=== PATIENT | female | born 1975 | race Caucasian/White ===

== ENCOUNTER 2017-01-21 11:02 | Emergency (ER) | payer SELFPAY ==
[2017-01-21 12:50] LABS: Basophils % (Auto) 1.2 % (0.0-1.8); Eosinophils % (Auto) 0.8 % (0.0-4.3); Hematocrit 37.4 % (30.3-42.9); Hemoglobin 11.6 gm/dl (10.1-14.3); Mean Corpuscular HGB Conc 31 % (30-34); Mean Corpuscular Volume 83 fl (79-97); Platelet Count 367 K/mm3 (140-440); Red Blood Count 4.54 M/mm3 (3.65-5.03); Red Cell Distribution Width 14.9 % (13.2-15.2); White Blood Count 8.1 K/mm3 (4.5-11.0)
[2017-01-21 12:51] LABS: Mean Corpuscular Hemoglobin 26 pg (28-32)
[2017-01-21 12:57] LABS: Anion Gap 17 mmol/L; BUN/Creatinine Ratio 16.66; Blood Urea Nitrogen 10 mg/dL (7-17); Calcium 9.1 mg/dL (8.4-10.2); Carbon Dioxide 26 mmol/L (22-30); Chloride 100.3 mmol/L (98-107); Glucose 84 mg/dL (65-100); Potassium 3.8 mmol/L (3.6-5.0); Sodium 139 mmol/L (137-145)
[2017-01-21 13:49] LABS: Bacteria,Urine 1+ /HPF (Negative); Bilirubin,Urine NEG (Negative); Blood,Urine NEG (Negative); Ketones,Urine NEG (Negative); Leukocyte Esterase,Urine TR (Negative); Mucus,Urine 3+ /HPF; Nitrite,Urine NEG (Negative); Urobilinogen,Urine < 2.0 mg/dL (<2.0)
--- NOTE | 2017-01-21 15:27 | Emergency Department Report ---
HPI - General Chief Complaint: Psych Time Seen by Provider: 01/21/17 12:46 - HPI HPI: This is a 41 year-old female presents to the emergency department via PD, although voluntarily, with the complaint of insomnia and what appears to be some psychosis and delusions. The patient says that she just was discharged from [place] yesterday after being near for the sensation and/or delusion that something is always crawling on her. This mostly happens at night when she is trying to sleep and therefore has been unable to sleep. This continued at the intermediate she is currently at. She also says that she feels like there is something moving around in her leg and it feels like there are snakes in there. She says that sometimes when she is sleeping she feels that Shay Hopkins is pushing her in the bed. She says that she has voices in her head and may have granted her super castle and which she is a telepathic and able to create spaceships and planets with her mind. She denies any significant suicidal ideations but does say that when she is having insomnia, and when she is having is delusions, that it "decreases my self-esteem" and sometimes she will think about ways to harm herself. ED Past Medical Hx - Past Medical History Previous Medical History?: Yes Hx Psychiatric Treatment: Yes (schizophrenia) - Surgical History Past Surgical History?: No - Social History Smoking Status: Never Smoker Substance Use Type: None ED Review of Systems ROS: Stated complaint: MENTAL HEALTH,HEARING VOICES Other details as noted in HPI Comment: All other systems reviewed and negative Constitutional: denies: chills, fever Eyes: denies: eye pain, eye discharge, vision change ENT: denies: ear pain, throat pain Respiratory: denies: cough, shortness of breath, wheezing Cardiovascular: denies: chest pain, palpitations Gastrointestinal: denies: abdominal pain, nausea, diarrhea Genitourinary: denies: urgency, dysuria, discharge Musculoskeletal: denies: back pain, joint swelling, arthralgia Skin: denies: rash, lesions Neurological: denies: headache, weakness, paresthesias Psychiatric: auditory hallucinations. denies: visual hallucinations, homicidal thoughts Physical Exam - Physical Exam Vital Signs: Vital Signs 01/21/17 01/21/17 12:03 13:14 Temperature 98.1 F Pulse Rate 85 Respiratory 16 18 Rate Blood Pressure 120/82 O2 Sat by Pulse 100 Oximetry Physical Exam: GENERAL: The patient is well-developed well-nourished. HENT: Normocephalic. Atraumatic. Patient has moist mucous membranes. EYES: Extraocular motions are intact. Pupils equal reactive to light bilaterally. NECK: Supple. Trachea is midline. CHEST/LUNGS: Clear to auscultation. There is no respiratory distress noted. HEART/CARDIOVASCULAR: Regular. There is no tachycardia. There is no gallop rub or murmur. ABDOMEN: Abdomen is soft, nontender. Patient has normal bowel sounds. There is no abdominal distention. SKIN: Skin is warm and dry. NEURO: The patient is awake, alert, and oriented. The patient is cooperative. The patient has no focal neurologic deficits. The patient has normal speech. MUSCULOSKELETAL: There is no tenderness or deformity. There is no limitation range of motion. There is no evidence of acute injury. ED Course Vital Signs 01/21/17 01/21/17 12:03 13:14 Temperature 98.1 F Pulse Rate 85 Respiratory 16 18 Rate Blood Pressure 120/82 O2 Sat by Pulse 100 Oximetry ED Medical Decision Making - Lab Data Result diagrams: 01/21/17 12:24 01/21/17 12:24 - Medical Decision Making 41-year-old female presents to the emergency department with auditory hallucinations, delusions and psychosis. There may be some level of suicidal ideations although the patient does not really have any plan. From these reasons the patient has been made a 1013. Vital signs stable that her ED course. Labs are unremarkable and do not show any etiology of her symptoms. She is medically cleared for psychiatric placement. - Differential Diagnosis schizophrenia, schizoaffective, bipolar disorder, depression Critical Care Time: No Critical care attestation.: If time is entered above; I have spent that time in minutes in the direct care of this critically ill patient, excluding procedure time. ED Disposition Clinical Impression: Delusions Psychosis Qualifiers: Psychosis type: unspecified psychosis type Qualified Code(s): F29 - Unspecified psychosis not due to a substance or known physiological condition Disposition: [id number]/TX-65 PSY HOSP/PSY UNIT Is pt being admited?: No Condition: Stable Referrals: PRIMARY CARE, [Primary Care Provider] - 3-5 Days Time of Disposition: 15:27
[2017-01-22 14:36] VITALS: BP 119/80
--- NOTE | 2017-01-22 15:58 | Consultation ---
History of Present Illness - Reason for Consult Consult date: 01/22/17 Reason for consult: Mental Health Evaluation Requesting physician: KAIA LUCERO - Chief Complaint Chief complaint: "It was katlyn ventura" - History of Present Psychiatric Illness This is a 41 year-old female presents to the emergency department via PD for psychosis and delusions. Today patient is calm and cooperative during the assessment. She stated that she was a patient at [facility] 2 days ago. She was discharged to a residential and while there she started experiencing perceptional disturbances. She stated that "katlyn ventura" was taking over her "soul." She stated not being able to sleep at night because of a sound that she could not described. She felt like the residential wasn't safe for her. She stated that she called 911 for help and be placed somewhere safe. She stated that she got "rest" last night and would like to leave the hospital. During the conversation, the patient seemed preoccupied by looking around and pausing during the assessment. She stated that the "katlyn ventura" isn' t here at the hospital, but it could come "soon." She stated receiving the Abilify injection 2 days ago. She denies SI/HI's and depression. She could not confirm or deny perceptional disturbances. She denies recreational drug use and alcohol consumption (etoh). Medications and Allergies Allergies Allergy/AdvReac Type Severity Reaction Status Date / Time paliperidone [From Invega] Allergy Unknown Verified 01/21/17 12:13 risperidone [From Risperdal] Allergy Unknown Verified 01/21/17 12:13 Past psychiatric history - Past Medical History Past Medical History: No medical history Past Surgical History: No surgical history - past Psychiatric treatment and history Psych: Schizophrenia psychiatric treatment history: Inpatient at [facility] 48 hours ago. She denies a fam psy hx. - Social History Social history: lives with family ([employer] graduate) Mental Status Exam - Vital signs Last Vital Signs Temp 976 F H 01/22/17 13:00 Pulse 76 01/22/17 13:00 Resp 20 01/22/17 14:36 BP 119/80 01/22/17 13:00 Pulse Ox 97 01/22/17 14:36 - Exam Narrative exam: ROS: (+) psychosis MSE: Appearance: calm, cooperative Behavior: regular eye contact Speech: regular rate and tone Mood: "okay" Affect: labile Thought Process: circumstantial Thought Content: No gestures SI/HI's and AVH's, delusional Motor Activity: ambulatory Cognition: A/Ox 3 Insight: limited Judgment: limited Results Result Diagrams: 01/21/17 12:24 01/21/17 12:24 All other labs normal. Assessment and Plan Assessment and plan: Impression: Historical Dx: Schizophrenia paranoid type. Today patient is calm and cooperative during the assessment. Patient cannot confirm or deny perceptional disturbances. DDx: Unspecified Psychotic DO, Brief Psychotic Recommendation/Plan: Continue 1013 with placement to [facility]. Receive the monthly Abilify injection.
== END 2017-01-22 21:56 ==
LOC: EEVIPCON 11:02 → ED 11:02
DX: F22 Delusional disorders (principal); F29 Unspecified psychosis not due to a substance or known physiological condition; F20.9 Schizophrenia, unspecified
CPT/HCPCS: 36415; 80048; 81001; 85025; 99285; G0480; 80320